=== PATIENT | female | born 1990 | race Caucasian/White ===

== ENCOUNTER 2016-04-16 03:30 | Emergency (ER) | payer MEDICAID ==
[2016-04-16 04:04] VITALS: BMI 28.5
[2016-04-16] MEDS ORDERED: AMOXICILLIN 500 MG CAP PO ONE (05:00)
[2016-04-16] MEDS ORDERED: HYDROCODONE 5 MG/ACETAMIN 325 MG TAB PO ONE (05:01)
[2016-04-16] MEDS ORDERED: BUPIVACAINE 0.25%-EPINEPHRINE 1:200,000 30 ML INF ONE (05:01)
--- NOTE | 2016-04-16 06:05 | EDPRACDOC ---
- General Information Chief Complaint: Toothache Stated Complaint: TOOTHACHE () Time Seen by Provider: 04/16/16 04:35 Information Source: Patient Mode Of Arrival: Walk Home Medications: Home Medications Amoxicillin Trihydrate [Amoxicillin] 500 mg PO TID #30 tab 04/16/16 Hydrocodone Bit/Acetaminophen [Hydrocodon-Acetaminophen 5-325] 1 - 2 tab PO Q6H PRN #7 tab 04/16/16 Allergies/Adverse Reactions: Allergies Allergy/AdvReac Type Severity Reaction Status Date / Time No Known Allergies Allergy Verified 04/16/16 04:04 - History of Present Illness Onset: 2 weeks Reported Tooth Problem: LEFT UPPPER MOLAR PAIN AND GUM SWELLING Pain Severity: Reports: Moderate Relevant History of: Reports: None Modifying Factors: improves with: Chewing Associated Signs and Symptoms: Denies: Fever, Chills, Earache, Sore Throat Other History: CURRENTLY LATE SECOND TRIMESTER PREG. NO VAG BLEED OR DISCHARGE. ED Past Medical History - History Reviewed Yes Nurses notes reviewed and agree except as marked - Patient Medical History Psychological History: Denies: Depression - Social Medical History Smoking Status: Heavy tobacco smoker (5 or more cigarettes/day or daily pipe/ cigar) EDM Review of Systems - Review of Systems ROS Negative Except as Marked: Yes All systems reviewed and were negative except as marked - Physical Exam Constitutional: No apparent distress, Alert Oriented to: Time, Person, Place Last recorded Vital Signs: Last Vital Signs Temp 98.7 F 04/16/16 03:57 Pulse 97 04/16/16 03:57 Resp 16 04/16/16 03:57 BP 130/84 04/16/16 03:57 Pulse Ox 97 04/16/16 03:57 Oxygen Pulse Oxygen Saturation 97 O2 Device Room Air Oxygen Flow Rate Fraction of Inspired Oxygen ( FIO2) - HEENT Head: Normal Eye Exam: Normal Neck: Normal ED Tooth Problem Exam - HEENT Face: Swelling, Tender, Other (GENERALIZED EDEMA WITHOUT FOCAL ABSCESS). negative: Ecchymosis, Deformity, Abrasion, Laceration Teeth: Left: Molar-2 Upper, Molar-3 Upper Gingiva: Tender, Swelling, Red. negative: Pointing, Draining, Necrotizing Palate: Normal Mouth Range of Motion: Normal Sinuses: Normal Oropharynx: Normal Neck: Normal - Other Exam Other Exam Findings: FACE NL ED Procedures - Additional Procedures Progress Note: DENTAL INJECTION ABOVE TOOTH AT GINGIVAL BORDER WITH SENSICAINE WITH EPI. NO COMPLICATIONS, MILD PAIN RELIEF. - Departure Disposition: Home Condition: Stable Final Diagnosis: Dental abscess (peridontal) Instructions: Dental Abscess (ED) Education/Counseling Given To: Patient Education/Counseling Given Regarding: Diagnosis, Treatment, Prognosis Prescriptions: Amoxicillin Trihydrate [Amoxicillin] 500 mg PO TID #30 tab Hydrocodone Bit/Acetaminophen [Hydrocodon-Acetaminophen 5-325] 1 - 2 tab PO Q6H PRN #7 tab PRN Reason: Pain
[2016-04-16 06:14] VITALS: BP 122/79; PULSE 88; TEMP 98.6
== END 2016-04-16 06:12 | disposition home or self-care (01) ==
LOC: ED 03:30
DX: K04.7 Periapical abscess without sinus (principal)
CPT/HCPCS: 64402; 99283; J3490